=== PATIENT | female | born 2000 ===

== ENCOUNTER 2022-07-17 17:04 | Emergency (ER) | payer OTHER ==
[~2022-07-17] VITALS: Ht 167.6 cm; Wt 56.8 kg
[2022-07-17 17:05] VITALS: BP 112/73
[2022-07-17] MEDS ORDERED: PREN1TAB80 PO (17:13)
== END 2022-07-17 19:30 | disposition left against medical advice (07) ==
LOC: EMS 17:05
DX: Z53.21 Procedure and treatment not carried out due to patient leaving prior to being seen by health care provider (principal)
CPT/HCPCS: 99281; Z7502